=== PATIENT | male | born 1980 | race African-American/Black ===

== ENCOUNTER 2022-01-02 18:58 | Emergency (ER) | payer OTHER ==
[~2022-01-02] VITALS: Ht 165.1 cm; Wt 86.2 kg
== END 2022-01-02 21:17 | disposition home or self-care (01) ==
LOC: ER 18:58
DX: S60.212A Contusion of left wrist, initial encounter (principal); S80.01XA Contusion of right knee, initial encounter; X58.XXXA Exposure to other specified factors, initial encounter; Y93.89 Activity, other specified; Y92.89 Other specified places as the place of occurrence of the external cause; T14.8XXA Other injury of unspecified body region, initial encounter